=== PATIENT | female | born 1970 | race Caucasian/White ===

== ENCOUNTER 2020-11-03 17:17 | Outpatient (CLI) | payer MEDICARE, SELFPAY ==
--- NOTE | ~2020-11-03 | XR_ITS ---
XR foot LT min 3V DATE: 11/03/2020 18:02 INDICATION: Lateral pain and swelling; injury 6 months ago TECHNIQUE: 4 views COMPARISON: None FINDINGS: Plantar calcaneal enthesopathy. No fracture or dislocation, periosteal reaction or bone destruction. IMPRESSION: Plantar calcaneal enthesopathy Reviewed, dictated and finalized at location A. ARCHITECT
--- NOTE | ~2020-11-03 | XR_ITS ---
XR ankle LT min 3V DATE: 11/03/2020 18:01 INDICATION: Lateral ankle pain and swelling following injury 6 month TECHNIQUE: 4 views COMPARISON: None FINDINGS: Moderate plantar and mild posterior calcaneal enthesopathy. No fracture or dislocation of the ankle or disruption of the ankle mortise. IMPRESSION: No fracture or dislocation Calcaneal enthesopathy Reviewed, dictated and finalized at location A. RMATORY ATTENDANT
--- NOTE | ~2020-11-03 | XR_ITS ---
XR lumbar spine 2-3V DATE: 11/03/2020 18:00 INDICATION: Low back pain, shooting pain to left leg for 4 weeks there is no acute injury. TECHNIQUE: AP, lateral, coned lateral lumbosacral views COMPARISON: 07/26/2018 lumbar spine FINDINGS: Normal alignment of the lumbar spine. Minimal lumbar scoliosis. No fracture or bone destruction or spondylolisthesis. The included lower thoracic and lumbar pedicles are intact. There is minimal degenerative spurring of the lumbar spine. Lumbar and lumbosacral inter spaces are relatively preserved. The sacroiliac joints are intact. Compression screw of a proximal right femur. Status post cholecystectomy IMPRESSION: Minimal degenerative spurring of the lumbar spine Reviewed, dictated and finalized at location A. E CLEANER
== END 2020-11-03 17:18 | disposition home or self-care (01) ==
PROVIDERS: Family Provider Family Medicine; PCP Family Medicine; Visit Provider Nurse Practitioner Family
DX: M25.572 Pain in left ankle and joints of left foot (principal); M79.672 Pain in left foot; M54.5 Low back pain; M77.32 Calcaneal spur, left foot
CPT/HCPCS: 72100; 73610; 73630

== ENCOUNTER 2021-08-15 09:33 | Outpatient (CLI) | payer MEDICARE, SELFPAY ==
--- NOTE | ~2021-08-15 | XR_ITS ---
EXAMINATION: XR elbow LT min 3V DATE: 08/15/2021 10:16 INDICATION: Left elbow pain TECHNIQUE: Anteroposterior, two oblique and lateral views of the left elbow were obtained. COMPARISON: 09/26/2018 FINDINGS: Alignment is normal. No fracture or joint effusion. Joint spaces are normal. Soft tissues a re unremarkable. IMPRESSION: 1. No acute osseous abnormality. Reviewed, dictated and finalized at location B. ING TRUCK DRIVER
--- NOTE | ~2021-08-15 | XR_ITS ---
EXAMINATION:XR_CERV2-3V_CR DATE: 08/15/2021 10:16 INDICATION: Neck pain TECHNIQUE: AP, lateral, and odontoid views of the cervical spine are provided. COMPARISON: None FINDINGS: There is a 1.5 mm of retrolisthesis of C3 on C4. And 1 mm retrolisthesis of C4 on C5. The v ertebral body heights are maintained. There is moderate loss of intervertebral disc space height from C3-4 through C5-6. Small degenerative osteophytes project from the anterior endplates of multiple ve rtebral bodies. The odontoid is intact. No fracture is identified. There is severe multilevel facet a nd uncovertebral joint osteoarthritis. Prevertebral soft tissues are normal. IMPRESSION: 1. Moderate cervical spondylosis without acute findings. Reviewed, dictated and finalized at location B. UCTION SUPERVISOR TRAINEE
== END 2021-08-15 09:34 | disposition home or self-care (01) ==
LOC: ANHIMG 09:38
PROVIDERS: PCP Family Medicine; Visit Provider Nurse Practitioner Family
DX: M25.522 Pain in left elbow (principal); M47.892 Other spondylosis, cervical region
CPT/HCPCS: 72040; 73080

== ENCOUNTER → 2021-09-19 01:03 | Outpatient (CLI) | payer MEDICARE, SELFPAY ==
[2021-09-20 02:02] LABS: SARS-CoV-2 RNA PCR Negative
== END ==
PROVIDERS: PCP Family Medicine; Visit Provider Physician Assistant Medical
DX: R68.89 Other general symptoms and signs (principal); Z20.822 Contact with and (suspected) exposure to COVID-19
CPT/HCPCS: C9803; U0003; U0005

== ENCOUNTER 2021-09-28 16:36 | Outpatient (CLI) | payer MEDICARE, SELFPAY ==
[2021-09-28 18:22] LABS: Rubella IgG Antibody 11.3 IU/ML
[2021-09-28 18:39] LABS: Hepatitis B Surface Anti Res Positive
== END 2021-09-28 16:37 | disposition home or self-care (01) ==
LOC: ANHLAB 16:46
PROVIDERS: PCP Family Medicine; Visit Provider Nurse Practitioner Family
DX: Z02.1 Encounter for pre-employment examination (principal)
CPT/HCPCS: 36415; 86706; 86735; 86765; 86787

== ENCOUNTER → 2021-12-06 12:50 | Outpatient (CLI) | payer MEDICARE, SELFPAY ==
--- NOTE | ~2021-12-06 | US_ITS ---
US soft tissue UE LT 12/06/2021 13:06 Indication: Left elbow pain. Palpable soft tissue nodule. Procedure: High-resolution ultrasound of the left elbow Comparison: No prior studies for comparison. Findings: There is normal heterogeneous soft tissue of the left elbow without discrete fluid collecti on or mass. Impression: 1: Normal soft tissue ultrasound of the left elbow. Reviewed, dictated and finalized at location A. TAL MARKETS SPECIALIST Impression: 1: Normal soft tissue ultrasound of the left elbow.
== END ==
PROVIDERS: Visit Provider Nurse Practitioner Family
DX: M25.522 Pain in left elbow (principal)
CPT/HCPCS: 76882

== ENCOUNTER 2021-12-07 08:41 | Outpatient (CLI) | payer MEDICARE, SELFPAY ==
--- NOTE | 2021-12-07 11:00 | NEURO_ITS ---
Impression: # Complains of left upper extremity pain and discomfort. # Normal nerve conduction study. # No Carpal Tunnel Syndrome or ulnar neuropathy. # Normal needle/EMG exam. # Clinical correlation recommended. Nerve Conduction Studies Anti Sensory Summary Table Stim Site NR Peak (ms) P-T Amp (?V) Site1 Site2 Delta-P (ms) Dist (cm) Zach (m/s) Left Median Anti Sensory (2-3nd Digit) Wrist 2.7 91.8 Wrist 2-3nd Digit 2.7 14.0 52 Wrist 2.7 71.3 Wrist 2-3nd Digit 2.7 14.0 52 Right Median Anti Sensory (2-3nd Digit) Wrist 2.6 83.4 Wrist 2-3nd Digit 2.6 14.0 54 Wrist 2.4 84.1 Wrist 2-3nd Digit 2.6 14.0 54 Left Radial Anti Sensory (Base 1st Digit) Wrist 1.9 29.7 Wrist Base 1st Digit 1.9 0.0 Right Radial Anti Sensory (Base 1st Digit) Wrist 2.1 25.6 Wrist Base 1st Digit 2.1 0.0 Left Ulnar Anti Sensory (5th Digit) Wrist 2.4 71.3 Wrist 5th Digit 2.4 14.0 58 Right Ulnar Anti Sensory (5th Digit) Wrist 2.1 63.0 Wrist 5th Digit 2.1 14.0 67 Motor Summary Table Stim Site NR Onset (ms) O-P Amp (mV) Site1 Site2 Delta-0 (ms) Dist (cm) Zach (m/s) Left Median Motor (Abd Poll Brev) Wrist 3.1 4.5 Elbow Wrist 3.8 26.0 68 Elbow 6.9 4.4 Right Median Motor (Abd Poll Brev) Wrist 3.0 3.0 Elbow Wrist 4.6 25.0 54 Elbow 7.6 2.8 Left Ulnar Motor (Abd Dig Minimi) Wrist 2.6 6.7 A Elbow Wrist 4.2 26.0 62 A Elbow 6.8 5.6 Right Ulnar Motor (Abd Dig Minimi) Wrist 2.4 6.3 A Elbow Wrist 4.6 27.0 59 A Elbow 7.0 1.6 F Wave Studies NR F-Lat (ms) L-R F-Lat (ms) Left Median (Mrkrs) (Abd Poll Brev) 25.94 0.39 Right Median (Mrkrs) (Abd Poll Brev) 25.55 0.39 Left Ulnar (Mrkrs) (Abd Dig Min) 25.31 0.39 Right Ulnar (Mrkrs) (Abd Dig Min) 25.70 0.39 EMG Side Muscle Nerve Root Ins Act Fibs Amp Dur Recrt Comment Right 1stDorInt Ulnar C8-T1 Nml Nml Nml Nml Nml Right Ext Indicis Radial (Post Int) C7-8 Nml Nml Nml Nml Nml Right Ext Digitorum Radial (Post Int) C7-8 Nml Nml Nml Nml Nml Right BrachioRad Radial C5-6 Nml Nml Nml Nml Nml Right PronatorTeres Median C6-7 Nml Nml Nml Nml Nml Right Abd Poll Brev Median C8-T1 Nml Nml Nml Nml Nml Left 1stDorInt Ulnar C8-T1 Nml Nml Nml Nml Nml Left Ext Indicis Radial (Post Int) C7-8 Nml Nml Nml Nml Nml Left Ext Digitorum Radial (Post Int) C7-8 Nml Nml Nml Nml Nml Left BrachioRad Radial C5-6 Nml Nml Nml Nml Nml Left PronatorTeres Median C6-7 Nml Nml Nml Nml Nml Left Abd Poll Brev Median C8-T1 Nml Nml Nml Nml Nml MTDD
== END 2021-12-07 08:42 | disposition home or self-care (01) ==
LOC: ANHNEURO 08:42
PROVIDERS: PCP Family Medicine; Visit Provider Nurse Practitioner Family
DX: R53.1 Weakness (principal)
CPT/HCPCS: 95886; 95911

== ENCOUNTER 2022-01-03 09:54 | Outpatient (CLI) | payer MEDICARE, SELFPAY ==
[2022-01-03 10:27] LABS: Basophils Percent Auto 0.4 % (0.2-1.2); Eosinophils Absolute Auto 0.2 K/mm3 (0-0.3); Eosinophils Percent Auto 3.2 % (0-4.4); Hematocrit 39.1 % (37.0-47.0); Hemoglobin 12.5 g/dL (12.0-15.0); Immature Granulocyte Absolute 0.01 K/mm3 (0.00-0.031); Immature Granulocyte Percent A 0.2 % (0-0.5); Lymphocytes Absolute Auto 1.76 K/mm3 (0.9-3.2); Lymphocytes Percent Auto 34.7 % (18.3-44.2); Mean Corpuscular Hemoglobin 29.3 pg (26-34); Mean Corpuscular Volume 91.8 fl (80-100); Mean Platelet Volume 10.5 fl (7.4-10.4); Monocytes Absolute Auto 0.5 K/mm3 (0.1-0.6); Monocytes Percent Auto 9.3 % (2.6-8.5); Neutrophils Absolute Auto 2.7 K/mm3 (1.3-6.7); Neutrophils Percent Auto 52.2 % (45.5-73.1); Platelet Count Result 246 k/mm3 (150-375); Red Blood Count 4.26 M/mm3 (4.2-5.4); Red Cell Distribution Width 13.2 % (11.5-14.5); White Blood Count 5.1 K/mm3 (4.5-10.0)
[2022-01-03 10:43] LABS: Rheumatoid Factor < 8.6 IU/ML (<12)
[2022-01-03 10:44] LABS: CRP < 0.5 mg/dL (<1.0); Uric Acid 4.1 mg/dL (2.5-7.5)
[2022-01-03 10:54] LABS: Erythrocyte Sedimentation Rate 27 mm/hr (0-20)
== END 2022-01-03 09:55 | disposition home or self-care (01) ==
LOC: ANHLAB 09:57
PROVIDERS: PCP Family Medicine; Visit Provider Orthopaedic Surgery
DX: M25.522 Pain in left elbow (principal); M05.20 Rheumatoid vasculitis with rheumatoid arthritis of unspecified site
CPT/HCPCS: 36415; 84550; 85025; 85652; 86038; 86140; 86430

== ENCOUNTER 2022-01-16 10:15 | Outpatient (CLI) | payer MEDICARE, SELFPAY ==
--- NOTE | ~2022-01-16 | MR_ITS ---
EXAMINATION: MR forearm LT wo con DATE: 01/16/2022 11:21 INDICATION: Left elbow pain. TECHNIQUE: Magnetic resonance imaging (MRI) of the left forearm was performed without intravenous con trast. Sequences included axial, coronal, and sagittal T1-weighted FSE and STIR FSE. COMPARISON: Ultrasound 12/06/2021, left elbow radiographs 08/15/2021 FINDINGS: Bone alignment is normal. No fracture. There is mild biceps tendinopathy. There is moderate bicipitoradial bursitis. The muscle bellies are normal. Brachialis tendon is normal. There is mild o lecranon bursitis. IMPRESSION: 1. Mild biceps tendinopathy. No tear. 2. Moderate bicipitoradial bursitis. 3. Mild olecranon bursitis. Reviewed, dictated and finalized at location A.
== END 2022-01-16 10:16 ==
LOC: MICIMG 10:16
PROVIDERS: PCP Family Medicine; Visit Provider Orthopaedic Surgery
DX: M70.22 Olecranon bursitis, left elbow (principal); M70.32 Other bursitis of elbow, left elbow
CPT/HCPCS: 73218

== ENCOUNTER 2022-01-26 07:31 | Outpatient (CLI) | payer MEDICARE, SELFPAY ==
--- NOTE | 2022-02-08 14:52 | WPDSLEEPSTUD ---
Sleep Study Date of Study: 01/26/22 Ordering Provider: Last Yates MD Interpreting Physician: Carla Vail MD Sleep Study Type: Split Polysomnogram Height: 1.57 m Weight: 89.811 kg Body Mass Index: 36.2 Neck Circumference (inches): 15.5 [place]: 18 Reason for Sleep Study Hypersomnolence, gasping for breath at night Sleep History Faviola Coulter is a 51 year old female with fibromyalgia. She has loud constant snoring and reports that her pulse oximetry drops to 78% or below while sleeping. She has had episodes of waking during the night gasping for air. She has used 2 L/min oxygen with sleep. She has a difficult time falling asleep, staying asleep and has a difficult time waking in the morning. She occasionally awakens from sleep feeling short of breath. She occasionally awakens at night with heartburn, belching or coughing. She constantly has trouble sleeping with a cold. She occasionally wakes up gasping for breath at night. She occasionally has breathing problems at night observed by others. She frequently sweats excessively at night. She does not notice her heart pounding or beating irregularly at night. She constantly falls asleep during the day, constantly falls asleep involuntarily, occasionally falls asleep while driving. She does not have loss of muscle tone with strong emotion. She occasionally has daytime difficulties due to excessive sleepiness. 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 She does not feel paralyzed on waking or falling asleep nor does she have vivid dreamlike scenes upon awakening or falling asleep. She does not feel afraid to go to sleep. She frequently has nightmares. She occasionally remembers her dreams. She occasionally has racing thoughts. She occasionally feels sad, occasionally feels depressed. She frequently has anxiety. She occasionally has muscular tension. She occasionally notices parts of her body jerking. She rarely kicks at night. She occasionally has crawling and aching feelings in her legs. She occasionally has leg pain during the night. She rarely has morning jaw pain. She does not grind her teeth during sleep. She constantly is bothered by pain during the day and awakened by pain during the night. She frequently wakes up feeling stiff in the morning with sore achy muscles. She constantly wakes up with pain in the neck and spine. She has fatigue, memory problems, concentration difficulties, headaches and she takes antacids regularly. Her sleepiness has a negative impact on her sexual function. She reports gaining 50 lb in the last year. Normal bedtime is 8:00 p.m. falling asleep within 2 hours, sometimes longer. She typically wakes once at night for an hour or longer. While awake, she will watch television. Her work time is 3:00 a.m. 5 days a week. On her days off, her bedtime is also 8:00 p.m., and she sleeps longer, till 11:00 a.m. or 12 noon. Her work schedule is 3:00 a.m. 5 days out of the week. She estimates getting 6 hours of sleep at night. She takes naps in the afternoon or evening. A short nap is not refreshing. She is usually drowsy for 2 hours after waking. She feels better in the afternoon compared to other times of day. Habits: She never smoked tobacco. Caffeine 1 serving a day. Alcohol 1 serving per week. No recreational drugs. [facility] Past Medical History Medical History Abnormal heart rhythm Apnea Asthma Bipolar 2 disorder BMI 34.0-34.9,adult BMI 34.0-34.9,adult BMI 35.0-35.9,adult Chronic kidney disease (CKD), stage II (mild) Depression Diabetes type 2, controlled Dyslipidemia Edema Essential (primary) hypertension Fibromyalgia Headache, migraine High cholesterol History of femur fracture Hypertension Hypothyroidism Kidney disease Left anterior shoulder pain Left arm pain Left elbow tendinitis left biceps tendon Mixed hyperlipidemia Respiratory illness Se
[2022-02-08 15:37] VITALS: BMI 36.2
== END 2022-01-27 05:37 | disposition home or self-care (01) ==
LOC: ANHCSM 07:32
PROVIDERS: PCP Family Medicine; Visit Provider Family Medicine
DX: G47.33 Obstructive sleep apnea (adult) (pediatric) (principal)
CPT/HCPCS: 95811

== ENCOUNTER 2022-03-19 08:46 | Outpatient (CLI) | payer OTHER, MEDICARE, SELFPAY ==
--- NOTE | ~2022-03-19 | XR_ITS ---
XR foot RT 2V DATE: 03/19/2022 09:03 INDICATION: Right foot pain, especially heel area TECHNIQUE: AP and lateral views COMPARISON: 05/12/2013 right ankle FINDINGS: Mild plantar calcaneal enthesopathy without associated erosive change or periostitis. No fracture, dislocation, periosteal reaction or bone destruction is detected. IMPRESSION: Mild plantar calcaneal enthesopathy Reviewed, dictated and finalized at location A.
== END 2022-03-19 08:47 | disposition home or self-care (01) ==
LOC: ANHIMG 08:49
PROVIDERS: PCP Family Medicine; Visit Provider Physician Assistant Medical
DX: M79.671 Pain in right foot (principal); G89.29 Other chronic pain; M77.31 Calcaneal spur, right foot
CPT/HCPCS: 73620

== ENCOUNTER 2022-08-29 10:25 | Outpatient (CLI) | payer MEDICARE, SELFPAY ==
[2022-08-29 11:26] LABS: Anion Gap 10 mmol/L (8-16); Blood Urea Nitrogen 19 mg/dL (7-17); Calcium 9.2 mg/dL (8.4-10.2); Carbon Dioxide 26 mmol/L (22-30); Chloride 103 mmol/L (98-107); Estimated Glomerular Filt Rate 58; Glucose 121 mg/dL (65-110); Potassium 4.3 mmol/L (3.4-5.0); Sodium 139 mmol/L (137-145)
[2022-08-29 11:43] LABS: Free T4 Free Thyroxine 0.69 ng/mL (0.78-2.19); Vitamin D 25 Hydroxy 52.1 ng/mL
[2022-08-29 12:17] LABS: Vitamin B12 > 1000.0 pg/mL (239-931)
== END 2022-08-29 10:26 | disposition home or self-care (01) ==
LOC: ANHLAB 10:27
PROVIDERS: PCP Family Medicine; Visit Provider Nurse Practitioner Family
DX: R53.1 Weakness (principal); R25.9 Unspecified abnormal involuntary movements; E03.9 Hypothyroidism, unspecified; R25.8 Other abnormal involuntary movements; E53.8 Deficiency of other specified B group vitamins; E55.9 Vitamin D deficiency, unspecified
CPT/HCPCS: 36415; 80048; 82306; 82607; 84439; 84443

== ENCOUNTER 2022-09-10 18:41 | Emergency (ER) | payer MEDICARE, SELFPAY ==
[2022-09-10 19:18] VITALS: BP 116/97; PULSE 62; RESP 16; TEMP 36.6; O2SAT 100
--- NOTE | 2022-09-10 20:03 | ED.URI ---
HPI - URI/Sore Throat General Chief Complaint: Upper Respiratory Infection Stated Complaint: Sore Throat, Cough Time Seen by Provider: 09/10/22 20:03 Source: patient, RN notes reviewed and old records reviewed Mode of arrival: ambulatory Limitations: no limitations History of Present Illness HPI Narrative: 52-year-old female presents to the [facility] with complaints of a sore throat and cough As well as laryngitis for Three days. Patient has very vague symptoms. Declining strep testing. Wants flu testing. patient reports that she did have a fever of 98.8. No treatment prior to arrival Related Data Home Medications Medication Instructions Recorded Confirmed aripiprazole 400 mg intramuscular 400 mg IM MONTHLY 11/03/20 09/10/22 suspension,extended release (Abilify Maintena) Allergies Allergy/AdvReac Type Severity Reaction Status Date / Time amoxicillin Allergy Severe RASH Verified 08/17/22 11:01 morphine Allergy Severe ARRYTHMIA/LOW Verified 08/17/22 11:01 B/P Penicillins Allergy Severe SEVERE Verified 08/17/22 11:01 RASH, HIVES Sulfa (Sulfonamide Allergy Unknown Verified 08/17/22 11:01 Antibiotics) Review of Systems Review of Systems: All systems reviewed & are unremarkable except as noted in HPI and below Constitutional: Constitutional: Reports no additional constitutional complaints Eyes: Eyes: Reports no additional eye complaints ENT: Reports as per HPI Cardiovascular: Cardiovascular: Reports no additional cardiovascular complaints, Denies chest pain and Denies dyspnea Respiratory: Respiratory: Reports no additional respiratory complaints, Denies chest congestion, Denies cough and Denies dyspnea Gastrointestinal: Gastrointestinal: Reports no additional gastrointestinal complaints, Denies abdominal pain, Denies nausea and Denies vomiting Musculoskeletal: Musculoskeletal: Reports no additional musculoskeletal complaints Integumentary/Breasts: Skin/Breast: Reports system reviewed and no additional complaints, except as docu Neurologic: Reports system reviewed and no additional complaints, except as documented Psychiatric: Psychiatric: Reports no additional psychiatric complaints Allergic/Immunologic: Allergic/Immunologic: Reports no additional allergic/immunologic complaints PMFSH Past Medical History Medical History Abnormal heart rhythm Apnea Asthma Bipolar 2 disorder BMI 34.0-34.9,adult BMI 34.0-34.9,adult BMI 35.0-35.9,adult BMI greater than 30 Chronic kidney disease (CKD), stage II (mild) Depression Diabetes type 2, controlled Dyslipidemia Edema Essential (primary) hypertension Fibromyalgia Headache, migraine High cholesterol History of femur fracture Hypertension Hypothyroidism Kidney disease Left anterior shoulder pain Left arm pain Left elbow tendinitis left biceps tendon Mixed hyperlipidemia Respiratory illness Seasonal allergies Suicide attempt 2016 Thyroid disease Vitamin D deficiency Surgical History Surgical History H/O: hysterectomy History of appendectomy History of delivery History of cholecystectomy History of esophageal surgery History of sinus surgery History of surgery on right wrist Family History Family History Father Hypertension Cerebrovascular accident Sibling Hypertension Family history of diabetes mellitus in first degree relative Asthma Mother Family history of heart disease in male family member before age 55 Depression Grandparent Diabetes mellitus Hypertension Other Family history of arthritis Family history of bipolar disorder Family history of malignant neoplasm Social History Social History Smoking status: Never smoker Second hand tobacco smoke exposure: Y
== END 2022-09-10 20:30 | disposition home or self-care (01) ==
PROVIDERS: Emergency Provider Nurse Practitioner; PCP Family Medicine
DX: J06.9 Acute upper respiratory infection, unspecified (principal); J45.909 Unspecified asthma, uncomplicated; I12.9 Hypertensive chronic kidney disease with stage 1 through stage 4 chronic kidney disease, or unspecified chronic kidney disease; E11.22 Type 2 diabetes mellitus with diabetic chronic kidney disease; N18.2 Chronic kidney disease, stage 2 (mild); M79.7 Fibromyalgia; E78.00 Pure hypercholesterolemia, unspecified; E78.2 Mixed hyperlipidemia
CPT/HCPCS: 87804; 99213; G0463

== ENCOUNTER 2022-09-13 11:19 | Outpatient (CLI) | payer MEDICARE, SELFPAY ==
--- NOTE | ~2022-09-13 | XR_ITS ---
XR sacroiliac joints min 3V DATE: 09/13/2022 12:11 INDICATION: Pain TECHNIQUE: AP and bilateral oblique views COMPARISON: None FINDINGS: Compression screw device of proximal right femur. Normal alignment at the pubic symphysis and sacroiliac joints. No fracture or dislocation, erosive ch benny or ankylosis at the sacroiliac joints. IMPRESSION: No significant abnormality of the sacroiliac joints Reviewed, dictated and finalized at Location A. Reviewed, dictated and finalized at location B. ENT ACCOUNT LIAISON
[2022-09-13 12:21] LABS: Uric Acid 4.3 mg/dL (2.5-7.5)
[2022-09-13 13:02] LABS: Rheumatoid Factor < 8.6 IU/ML (<12)
[2022-09-19 09:03] LABS: Anti Cyclic Citrullinated Pept <16 Units (<20)
== END 2022-09-13 11:20 | disposition home or self-care (01) ==
LOC: ANHLAB 11:21
PROVIDERS: PCP Family Medicine; Visit Provider Internal Medicine
DX: M19.90 Unspecified osteoarthritis, unspecified site (principal); M79.7 Fibromyalgia; Z71.89 Other specified counseling; Z79.899 Other long term (current) drug therapy
CPT/HCPCS: 36415; 72202; 84550; 86038; 86200; 86430

== ENCOUNTER 2022-09-24 17:11 | Observation (INO) | payer MEDICARE, SELFPAY ==
--- NOTE | ~2022-09-24 | XR_ITS ---
XR chest 1V portable DATE: 09/24/2022 18:35 INDICATION: Weakness TECHNIQUE: Portable upright AP chest on 09/24/2022 at 1828 hours COMPARISON: 09/26/2018 AP and lateral chest FINDINGS: There is mild infiltrate and/or atelectasis at the lung bases. The lungs otherwise appear c lear. Heart size appears within normal range. No pleural effusion or pulmonary vascular congestion or pneum othorax is noted. Surgical clips overlie the left and right upper quadrants the abdomen. IMPRESSION: Mild infiltrate and/atelectasis at both lung bases Reviewed, dictated and finalized at location A. MAINFRAME SYSTEMS PROGRAMMER
--- NOTE | ~2022-09-24 | CT_ITS ---
EXAMINATION: CTA brain carotid DATE: 09/24/2022 19:51 INDICATION: Dizziness. Weakness. TECHNIQUE: Computed tomographic angiography (CTA) of the head was performed without and with 100 mL O mnipaque-350 intravenous contrast. CTA of the neck was performed with intravenous contrast. Automated exposure control and iterative reconstruction technique were employed. The dose-length product was 1 592.04 mGy-cm. Maximum intensity projection and volume rendered 3D-reconstructions were created by ed woo technologist on a separate workstation. COMPARISON: Head CT 09/26/2018 FINDINGS: HEAD CTA: There is no intracranial hemorrhage, acute infarction, or abnormal intracranial mass lesion . The ventricles are normal in size. The paranasal sinuses are clear. The mastoid air cells are no l. The orbits are normal. Right vertebral artery is dominant. There is no significant stenosis of bas ilar artery or the posterior cerebral arteries. The posterior communicating arteries are normal. Ther e is no significant stenosis of the intracranial internal carotid arteries or anterior or middle cere bral arteries. Anterior communicating artery is normal. There is no aneurysm. NECK CTA: There are no pathologically enlarged lymph nodes. There is no significant stenosis of the v ertebral arteries. There is mild plaque in the proximal internal carotid arteries. There is 0% stenos is of the proximal right internal carotid artery relative to normal distal artery lumen diameter (GILL CET criteria). There is 0% stenosis of the proximal left internal carotid artery relative to normal d istal artery lumen diameter. There is severe cervical and thoracic spondylosis. IMPRESSION: 1. Normal brain. No aneurysm or significant intracranial arterial stenosis. 2. 0% stenosis of the proximal internal carotid arteries relative to normal distal artery lumen diame ters (NASCET criteria). Reviewed, dictated and finalized at location A. NG CUTTING MACHINE OPERATOR IMPRESSION: 1. Normal brain. No aneurysm or significant intracranial arterial stenosis. 2. 0% stenosis of the proximal internal carotid arteries relative to normal dis yakov artery lumen diameters (NASCET criteria).
[2022-09-24 17:33] VITALS: BP 126/72; PULSE 36; RESP 20; TEMP 36.7; O2SAT 100
--- NOTE | 2022-09-24 17:36 | ECG_ITS ---
Measurements Intervals [place] Rate: 69 P: 51 NE: 131 QRS: 12 QRSD: 86 T: 17 QT: 360 QTc: 386 Interpretive Statements SINUS RHYTHM WITH FREQUENT VENTRICULAR PREMATURE COMPLEXES IN A BIGEMINAL PATTERN ABNORMAL RHYTHM ECG NO PREVIOUS ECG AVAILABLE FOR COMPARISON Electronically Signed On 09-25-2022 15:29:47 MARKET BASKET MAKER by Michelle Rogers M.D.
[2022-09-24] MEDS: LACTATED RINGERS 1,000 ML 999 ML IV CONT (18:32)
[2022-09-24 18:53] LABS: Basophils Percent Auto 0.2 % (0.2-1.2); Eosinophils Percent Auto 0.1 % (0-4.4); Hematocrit 41.3 % (37.0-47.0); Hemoglobin 13.4 g/dL (12.0-15.0); Immature Granulocyte Absolute 0.04 K/mm3 (0.00-0.031); Immature Granulocyte Percent A 0.4 % (0-0.5); Lymphocytes Absolute Auto 1.31 K/mm3 (0.9-3.2); Lymphocytes Percent Auto 13.3 % (18.3-44.2); Mean Corpuscular HGB Conc 32.4 g/dl (32-36); Mean Corpuscular Hemoglobin 29.3 pg (26-34); Mean Corpuscular Volume 90.4 fl (80-100); Mean Platelet Volume 10.3 fl (7.4-10.4); Monocytes Absolute Auto 0.4 K/mm3 (0.1-0.6); Monocytes Percent Auto 4.1 % (2.6-8.5); Neutrophils Absolute Auto 8.1 K/mm3 (1.3-6.7); Neutrophils Percent Auto 81.9 % (45.5-73.1); Platelet Count Result 325 k/mm3 (150-375); Red Blood Count 4.57 M/mm3 (4.2-5.4); Red Cell Distribution Width 13.7 % (11.5-14.5); White Blood Count 9.9 K/mm3 (4.5-10.0)
[2022-09-24 18:55] LABS: Add Urine Microscopic? NO; Appearance Urine Clear (Clear); Bilirubin Urine Negative (Negative); Blood Urine Negative (Negative); Color Urine Light Yellow (Yellow); Glucose Urine UA Negative (Negative); Ketones Urine Negative (Negative); Leukocyte Esterase Ur Negative LEU/UL (Negative); Nitrate Urine Negative (Negative); Protein Urine Negative (Negative); Specific Grav Ur <= 1.005 (1.001-1.035); Urobilinogen Urine 0.2 mg/dL (<2.0)
[2022-09-24 19:09] LABS: INR 1.1
[2022-09-24 19:10] LABS: Partial Thromboplastin Time 26.3 SECONDS (22.3-36.8)
[2022-09-24 19:13] LABS: Alanine Aminotransferase 182 U/L (6-35); Albumin Level 4.4 g/dL (3.5-5.1); Alkaline Phosphatase 94 U/L (38-126); Anion Gap 6 mmol/L (8-16); Aspartate Amino Transferase 106 U/L (14-36); Bilirubin,Total 0.3 mg/dL (0.2-1.3); Blood Urea Nitrogen 14 mg/dL (7-17); Calcium 8.9 mg/dL (8.4-10.2); Carbon Dioxide 30 mmol/L (22-30); Chloride 101 mmol/L (98-107); Estimated CRCL calculation 66 ml/min; Estimated Glomerular Filt Rate > 60; Glucose 130 mg/dL (65-110); Potassium 4.1 mmol/L (3.4-5.0); Sodium 137 mmol/L (137-145)
[2022-09-24 19:15] LABS: Lactic Acid Reflex 1.4 mmol/L (0.7-2.0)
[2022-09-24 19:16] LABS: Lipase 68 U/L (23-300); Magnesium 2.2 mg/dL (1.6-2.3)
[2022-09-24 19:28] LABS: Influenza A QL RT-PCR Negative (Negative); Influenza B QL RT-PCR Negative (Negative); SARS-CoV-2 RNA PCR Negative
[2022-09-24 19:29] LABS: Troponin I < 0.012 ng/mL (0.000-0.034)
--- NOTE | 2022-09-24 19:37 | ED.DIZZY ---
HPI - Dizziness General Chief Complaint: Dizziness Stated Complaint: feels like she might faint Time Seen by Provider: 09/24/22 17:58 Source: patient and RN notes reviewed Mode of arrival: ambulatory Limitations: no limitations History of Present Illness HPI Narrative: This is a 52 year old female who presents for evaluation dizziness and low heart rate. Patient reports dizziness for 2 weeks . She reports feeling faint and she also reports spinning sensation. She reports her dizziness is constant. She thought her dizziness was due to clogged right ear so she was evaluated at Urgent care initially. She was diagnosed with covid at that time. She states her right ear does not feel clogged any more but she is still dizzy. She reports her monitor records that her heart rate is in the 30s. She also noticed midsternal nonradiating chest heaviness that has been present all day. She denies any exacerbating factors. She denies sob or cough. SHe reports nausea but denies vomiting. She also has been having body shaking all over for past 4 days. On reviewed of medical record, patient was seen by PCP recently for abnormal arm movements for several weeks. Related Data Home Medications Medication Instructions Recorded Confirmed aripiprazole 400 mg intramuscular 400 mg IM MONTHLY 11/03/20 09/10/22 suspension,extended release (Abilify Maintena) Allergies Allergy/AdvReac Type Severity Reaction Status Date / Time amoxicillin Allergy Severe RASH Verified 09/13/22 10:05 morphine Allergy Severe ARRYTHMIA/LOW Verified 09/13/22 10:05 B/P Penicillins Allergy Severe SEVERE Verified 09/13/22 10:05 RASH, HIVES Sulfa (Sulfonamide Allergy Unknown Verified 09/13/22 10:05 Antibiotics) Review of Systems Review of Systems: All systems reviewed & are unremarkable except as noted in HPI and below Constitutional: Constitutional: Denies chills and Denies fatigue ENT: Denies dysphagia, Denies nasal congestion and Denies sore throat Cardiovascular: Cardiovascular: Reports chest pain, Denies radiating jaw, neck or arm pain and Reports slow heart rate Respiratory: Respiratory: Denies chest congestion, Denies cough and Denies dyspnea Genitourinary: Genitourinary: Denies dysuria Neurologic: Reports vertigo, Reports dizziness, Denies focal weakness and Denies numbness PMFSH Past Medical History Medical History Abnormal heart rhythm Apnea Asthma Bipolar 2 disorder BMI 34.0-34.9,adult BMI 34.0-34.9,adult BMI 35.0-35.9,adult BMI greater than 30 Chronic kidney disease (CKD), stage II (mild) Depression Diabetes type 2, controlled Dyslipidemia Edema Essential (primary) hypertension Fibromyalgia Headache, migraine High cholesterol History of femur fracture Hypertension Hypothyroidism Inflammatory arthritis Kidney disease Left anterior shoulder pain Left arm pain Left elbow tendinitis left biceps tendon Mixed hyperlipidemia Respiratory illness Seasonal allergies Suicide attempt 2016 Thyroid disease Vitamin D deficiency Surgical History Surgical History H/O: hysterectomy History of appendectomy History of delivery History of cholecystectomy History of esophageal surgery History of sinus surgery History of surgery on right wrist Family History Family History Father Hypertension Cerebrovascular accident Sibling Hypertension Family history of diabetes mellitus in first degree relative Asthma Mother Family history of heart disease in male family member before age 55 Depression Grandparent Diabetes mellitus Hypertension Other Family history of arthritis Family history of bipolar disorder Family history of malignant neoplasm Social History Social History Smo
[2022-09-24] MEDS: ONDANSETRON INJ 4 MG/2 ML VIAL IV PUSH ×2 (21:34→23:25)
[2022-09-24] MEDS: MECLIZINE HCL 25 MG TABLET PO (21:34)
[2022-09-24 21:50] VITALS: BP 124/92; BP 133/91; PULSE 40; PULSE 58
[2022-09-24 21:51] VITALS: BP 137/81; PULSE 56
--- NOTE | 2022-09-24 22:49 | PM.IMHP ---
H&P: HPI History of Present Illness Date/Time: 09/24/22 22:49 Chief Complaint: vertigo Narrative: this is a 52-year-old female with past medical history significant for chronic kidney disease, type diabetes mellitus, hypertension, migraine headache, Tanvi fundoplication. Patient presents to the emergency room after she tested positive for COVID few days ago to has not been feeling well body aches and pains, loss of 6 sense of taste and smell, poor appetite, fevers, rigors, chills today she presented to the emergency room with complaints of vertigo sensation of room spinning around her. denies any focal sensorimotor deficit. preliminary workup was significant for patient tested negative for influenza A, influenza B and COVID-19 a chest x-ray was reported as: IMPRESSION: Mild infiltrate and/atelectasis at both lung bases? Review of Systems Review of Systems: VERTIGO, BODY ACHES AND PAINS, FEVERS, CHILLS, TESTED POSITIVE FOR COVID AT HOME, POOR APPETITE. Constitutional: Constitutional: Reports body ache(s), Reports chills, Reports fatigue, Reports fever(s), Reports lethargy, Reports malaise, Reports poor appetite and Reports weakness Eyes: Eyes: Denies change in vision ENT: Denies dysphagia, Reports vertigo and Denies odynophagia Cardiovascular: Cardiovascular: Denies chest pain and Denies palpitations Respiratory: Respiratory: Denies cough, Denies excessive phlegm production and Denies dyspnea Gastrointestinal: Gastrointestinal: Denies abdominal pain, Denies dyspepsia, Denies heartburn, Denies diarrhea, Denies nausea and Denies vomiting Genitourinary: Genitourinary: Denies dysuria Musculoskeletal: Musculoskeletal: Reports myalgias Integumentary/Breasts: Skin/Breast: Denies rash Neurologic: Denies vertigo, Denies dizziness, Denies focal weakness and Denies Sensory deficit (Neuro) Psychiatric: Psychiatric: Reports no additional psychiatric complaints and Reports as per HPI Endocrine: Endocrine: Denies cold intolerance, Denies flushing, Denies heat intolerance, Denies polyphagia, Denies polydipsia and Denies palpitations Hematologic/Lymphatic: Hematologic/Lymphatic: Reports no additional hematologic/lymphatic complaints and Reports as per HPI Allergic/Immunologic: Allergic/Immunologic: Reports no additional allergic/immunologic complaints and Reports as per HPI [facility] Past Medical History Medical History Abnormal heart rhythm Apnea Asthma Bipolar 2 disorder BMI 34.0-34.9,adult BMI 34.0-34.9,adult BMI 35.0-35.9,adult BMI greater than 30 Chronic kidney disease (CKD), stage II (mild) Depression Diabetes type 2, controlled Dyslipidemia Edema Essential (primary) hypertension Fibromyalgia Headache, migraine High cholesterol History of femur fracture Hypertension Hypothyroidism Inflammatory arthritis Kidney disease Left anterior shoulder pain Left arm pain Left elbow tendinitis left biceps tendon Mixed hyperlipidemia Respiratory illness Seasonal allergies Suicide attempt 2016 Thyroid disease Vitamin D deficiency Surgical History Surgical History H/O: hysterectomy History of appendectomy History of delivery History of cholecystectomy History of esophageal surgery History of sinus surgery History of surgery on right wrist Family History Family History Father Hypertension Cerebrovascular accident Sibling Hypertension Family history of diabetes mellitus in first degree relative Asthma Mother Family history of heart disease in male family member before age 55 Depression Grandparent Diabetes mellitus Hypertension Other Family history of arthritis Family history of bipolar disorder Family history of malignant neoplasm Social History Social History S
[2022-09-24] MEDS: diazePAM (*CRX) 5 MG TABLET 2.5 MG PO (23:24)
[2022-09-25] MEDS: cefTRIAXone 2 GM in SODIUM CHLORIDE 0.9% IV 100 ML 200 ML IVPB (04:14)
[2022-09-25 07:18] LABS: Basophils Percent Auto 0.3 % (0.2-1.2); Eosinophils Absolute Auto 0.1 K/mm3 (0-0.3); Eosinophils Percent Auto 0.9 % (0-4.4); Hematocrit 39.1 % (37.0-47.0); Hemoglobin 12.6 g/dL (12.0-15.0); Immature Granulocyte Absolute 0.02 K/mm3 (0.00-0.031); Immature Granulocyte Percent A 0.3 % (0-0.5); Lymphocytes Absolute Auto 2.54 K/mm3 (0.9-3.2); Lymphocytes Percent Auto 36.5 % (18.3-44.2); Mean Corpuscular HGB Conc 32.2 g/dl (32-36); Mean Corpuscular Volume 89.9 fl (80-100); Mean Platelet Volume 10.2 fl (7.4-10.4); Monocytes Absolute Auto 0.5 K/mm3 (0.1-0.6); Monocytes Percent Auto 7.2 % (2.6-8.5); Neutrophils Absolute Auto 3.8 K/mm3 (1.3-6.7); Neutrophils Percent Auto 54.8 % (45.5-73.1); Platelet Count Result 260 k/mm3 (150-375); Red Blood Count 4.35 M/mm3 (4.2-5.4); Red Cell Distribution Width 13.5 % (11.5-14.5)
[2022-09-25 07:33] LABS: Alanine Aminotransferase 182 U/L (6-35); Albumin Level 3.7 g/dL (3.5-5.1); Alkaline Phosphatase 74 U/L (38-126); Anion Gap 6 mmol/L (8-16); Aspartate Amino Transferase 98 U/L (14-36); Bilirubin,Total 0.3 mg/dL (0.2-1.3); Blood Urea Nitrogen 14 mg/dL (7-17); Calcium 8.2 mg/dL (8.4-10.2); Carbon Dioxide 31 mmol/L (22-30); Chloride 103 mmol/L (98-107); Estimated CRCL calculation 66 ml/min; Estimated Glomerular Filt Rate > 60; Glucose 125 mg/dL (65-110); Potassium 3.5 mmol/L (3.4-5.0); Sodium 140 mmol/L (137-145)
--- NOTE | 2022-09-25 10:35 | PM.IMPN ---
Progress Note: A&P Assessment and Plan (1) Dizziness: Code(s): R42 - Dizziness and giddiness Status: Acute Assessment and Plan: Onset 1.5 weeks ago following viral illness. head/neck CTA revealed normal brain without evidence of aneurysm or intracranial stenosis and 0% stenosis of the proximal internal carotid arteries. Trial of meclizine. Monitor orthostatics. May benefit from outpatient referral to vestibular rehab. (2) Infiltrate of lung present on chest x-ray: Code(s): R91.8 - Other nonspecific abnormal finding of lung field Status: Acute Assessment and Plan: Suspect post COVID bacterial pneumonia. CXR revealed mild infiltrate of the bilateral lung bases. Continue ceftriaxone and azithromycin. Will attempt sputum for culture. Check urinary Legionella and pneumococcal antigens. Supportive care to include bronchodilators, expectorants, incentive spirometry, Corn[place] (3) COVID-19: Code(s): U07.1 - COVID-19 Status: Acute Assessment and Plan: Recent COVID-19 illness 1.5 weeks ago, did not have any antiviral or steroid treatment. COVID PCR negative on 09/24. Supportive care. (4) Diabetes type 2, controlled: Qualifiers: Diabetes mellitus mcfp insulin use: without professor of engineering use Diabetes mellitus complication status: without complication Qualified Code(s): E11.9 - Type 2 diabetes mellitus without complications Code(s): E11.9 - Type 2 diabetes mellitus without complications Status: Acute Assessment and Plan: patient reports diet-controlled. not on any hypoglycemic agents. Will initiate Accu-Cheks, sliding scale insulin, and hypoglycemic protocol. (5) Hypertension: Code(s): I10 - Essential (primary) hypertension Status: Acute Assessment and Plan: Blood pressures have been well controlled. Home antihypertensives will be resumed following medication reconciliation (6) Hypothyroid: Qualifiers: Hypothyroidism type: unspecified Qualified Code(s): E03.9 - Hypothyroidism, unspecified Code(s): E03.9 - Hypothyroidism, unspecified Status: Acute Assessment and Plan: last TSH 1 month ago was within normal limits. Resume home levothyroxine following reconciliation. (7) Bipolar 2 disorder: Code(s): F31.81 - Bipolar II disorder Status: Acute Assessment and Plan: Stable, no acute issues. Receives Abilify injections monthly. Resume home antidepressants Subjective Date/time seen: 09/25/22 10:35 Interval history: Date of service: 09/25/2022 Faviola Coulter is a 52-year-old female with a history of CKD, type 2 diabetes mellitus, hypertension, hyperlipidemia, hypothyroidism, bipolar disorder, vitamin-D deficiency who is seen in follow-up for dizziness. Patient states dizziness has been ongoing for 1.5 weeks, no change control analyst the course of the weeks. No recent worsening. She notices the symptoms more prominently when she turns her head, especially if turning her head to the right. Also notices symptoms when she is lying down. No change in symptoms with standing up, although she does endorse lightheadedness with standing. She denies shortness of breath or chest pain. Denies any recent cough. Did have an episode of nausea this morning that improved antiemetics. No vomiting and she has been able to tolerate her diet. Denies abdominal pain. No dysphagia. She endorses mild right ear fullness which seems to have improved over the past several days. She has a mild headache. Denies visual changes. No urinary symptoms. Review of Systems Review of Systems: All systems reviewed & are unremarkable except as noted in HPI and below Exam Narrative: General: well-nourished, well-appearing 52-year-old female, sitting up in bed, comfortable, NARD Neuro: awake, alert and oriented x4, speech clear, no focal neuro deficits noted HEENMT: normoce
[2022-09-25 11:17] VITALS: BP 110/61; PULSE 75
[2022-09-25 11:22] VITALS: BP 106/63; PULSE 72
[2022-09-25 11:24] VITALS: BP 117/68; PULSE 90
[2022-09-25 13:12] VITALS: BMI 33.3
== END 2022-09-25 14:35 | disposition left against medical advice (07) ==
LOC: ANHED 23:18 → ANH3MEDSUR 23:48
PROVIDERS: Emergency Medicine; Admitting Provider Internal Medicine; Emergency Provider General Practice; PCP Family Medicine; Visit Provider Physician Assistant
DX: R42 Dizziness and giddiness (principal); R91.8 Other nonspecific abnormal finding of lung field; R07.9 Chest pain, unspecified; R53.1 Weakness; J45.909 Unspecified asthma, uncomplicated; F31.81 Bipolar II disorder; I12.9 Hypertensive chronic kidney disease with stage 1 through stage 4 chronic kidney disease, or unspecified chronic kidney disease; E11.22 Type 2 diabetes mellitus with diabetic chronic kidney disease; N18.2 Chronic kidney disease, stage 2 (mild); E78.2 Mixed hyperlipidemia; M79.7 Fibromyalgia; Z20.822 Contact with and (suspected) exposure to COVID-19; Z86.16 Personal history of COVID-19; G43.909 Migraine, unspecified, not intractable, without status migrainosus; E03.9 Hypothyroidism, unspecified; M19.90 Unspecified osteoarthritis, unspecified site; R94.31 Abnormal electrocardiogram [ECG] [EKG]; F10.90 Alcohol use, unspecified, uncomplicated; Z79.1 Long term (current) use of non-steroidal anti-inflammatories (NSAID); Z79.891 Long term (current) use of opiate analgesic; Z79.899 Other long term (current) drug therapy; Z82.49 Family history of ischemic heart disease and other diseases of the circulatory system; Z83.3 Family history of diabetes mellitus; Z82.61 Family history of arthritis
CPT/HCPCS: 36415; 70496; 70498; 71045; 80053; 81003; 81025; 83605; 83690; 83735; 84484; 85025; 85610; 85730; 87636; 93005; 96361; 96365; 96366; 96375; 96376; 99285; A9270; G0378; J0456; J0696; J2405; J7120; Q9967

== ENCOUNTER 2022-10-29 08:26 | Outpatient (CLI) | payer MEDICARE, BC, SELFPAY ==
--- NOTE | 2022-10-29 08:46 | ECHO_ITS ---
Patient Info Name: Faviola Coulter Age: 52 years : 1970 Gender: Female Ht: 62 in Wt: 180 lbs BSA: 1.92 m2 HR: 72 bpm BP: 128 / 88 mmHg Technical Quality: Good Exam Date: 10/29/2022 8:59 AM Exam Location: [facility] Patient Status: Outpatient Admit Date: 10/29/2022 Staff Ordering Physician: Steven Kahn DO [place] Fireman: Bernadine Quiles RDCS Attending Provider: Steven Kahn DO Referring Physician: Femi REYNA; Exam Type: CA echo doppler color flow Study Info Indications - COVID INFECTION I49.3 - Ventricular premature depolarization Complete two-dimensional, color flow and Doppler transthoracic echocardiogram is performed. Summary 1. Complete two-dimensional, color flow and Doppler transthoracic echocardiogram is performed. 2. Left ventricular chamber dimension is normal. 3. Left ventricular systolic function is normal, estimated at 55-60%. 4. There is mildly increased left ventricular wall thickness. 5. The left ventricular diastolic function is abnormal. 6. E/e' 12 is mildly elevated. 7. Global longitudinal strain is normal at -18.6%. 8. Left atrial chamber dimension is moderately enlarged. 9. Right atrial chamber dimension is mildly enlarged. 10. There is trace mitral valve regurgitation. 11. There is mild tricuspid valve regurgitation. 12. No pulmonary hypertension, estimated pulmonary arterial systolic pressure is 37 mmHg. 13. There is trace pulmonic regurgitation. 14. There is trivial pericardial effusion. Left Ventricle E/e' 12 is mildly elevated. Global longitudinal strain is normal at -18.6%. Left ventricular chamber dimension is normal. Left ventricular systolic function is normal, estimated at 55-60%. There is mildly increased left ventricular wall thickness. The left ventricular diastolic function is abnormal. Right Ventricle Right ventricular systolic function is normal and with normal TAPSE 2.3 cm. Right ventricular chamber dimension is normal. Left Atria Left atrial chamber dimension is moderately enlarged. Right Atria Right atrial chamber dimension is mildly enlarged. Aortic Valve The aortic valve is trileaflet. There is no aortic valve stenosis. There is no aortic valve regurgitation. Pulmonic Valve There is trace pulmonic regurgitation. Mitral Valve There is no mitral valve stenosis. There is trace mitral valve regurgitation. Tricuspid Valve There is mild tricuspid valve regurgitation. No pulmonary hypertension, estimated pulmonary arterial systolic pressure is 37 mmHg. Pericardium/Pleural There is trivial pericardial effusion. Inferior Vena Cava Normal inferior vena cava with >50% collapse upon inspiration consistent with normal right atrial pressure, 5 mmHg. Aorta The aortic root size at the sinus of Valsalva is normal. Left Ventricular Outflow Tract Name Value Normal LVOT 2D LVOT Diameter 1.9 cm LVOT Doppler LVOT Peak Gradient 4 mmHg LVOT Mean Gradient 2 mmHg LVOT VTI 22 cm LVOT VTI/AV VTI Ratio 0.9
[2022-10-29 09:08] LABS: Alanine Aminotransferase 64 U/L (6-35); Albumin Level 4.3 g/dL (3.5-5.1); Alkaline Phosphatase 95 U/L (38-126); Anion Gap 4 mmol/L (8-16); Aspartate Amino Transferase 45 U/L (14-36); Bilirubin,Total 0.5 mg/dL (0.2-1.3); Blood Urea Nitrogen 20 mg/dL (7-17); Calcium 9.8 mg/dL (8.4-10.2); Carbon Dioxide 34 mmol/L (22-30); Chloride 100 mmol/L (98-107); Cholesterol 230 mg/dL (0-200); Estimated Glomerular Filt Rate 52; Glucose 110 mg/dL (65-110); HDL Direct 53 mg/dL; Sodium 138 mmol/L (137-145); Triglycerides 216 mg/dL (<150)
[2022-10-29 09:19] LABS: LDL Cholesterol Direct 107 mg/dL
== END 2022-10-29 08:27 | disposition home or self-care (01) ==
PROVIDERS: PCP Family Medicine; Visit Provider Internal Medicine Cardiovascular Disease
DX: I49.3 Ventricular premature depolarization (principal); E78.5 Hyperlipidemia, unspecified; I36.1 Nonrheumatic tricuspid (valve) insufficiency
CPT/HCPCS: 36415; 80053; 80061; 93306

== ENCOUNTER 2023-01-15 10:44 | Outpatient (CLI) | payer BC, MEDICARE, SELFPAY ==
[2023-01-15 11:43] LABS: Alanine Aminotransferase 35 U/L (6-35); Albumin Level 4.3 g/dL (3.5-5.1); Alkaline Phosphatase 79 U/L (38-126); Anion Gap 4 mmol/L (8-16); Aspartate Amino Transferase 29 U/L (14-36); Bilirubin,Total 0.6 mg/dL (0.2-1.3); Blood Urea Nitrogen 22 mg/dL (7-17); Calcium 9.1 mg/dL (8.4-10.2); Carbon Dioxide 30 mmol/L (22-30); Chloride 104 mmol/L (98-107); Cholesterol 157 mg/dL (0-200); Estimated Glomerular Filt Rate 58; Glucose 120 mg/dL (65-110); HDL Direct 67 mg/dL; Potassium 4.6 mmol/L (3.4-5.0); Sodium 138 mmol/L (137-145); Triglycerides 73 mg/dL (<150)
[2023-01-15 11:54] LABS: LDL Cholesterol Direct 66 mg/dL
[2023-01-15 12:01] LABS: T4 Thyroxine 6.62 ug/dL (5.53-11.0)
[2023-01-15 12:12] LABS: Hemoglobin A1C 5.6 % (<5.7)
[2023-01-15 12:34] LABS: Vitamin D 25 Hydroxy 56.3 ng/mL
== END 2023-01-15 10:45 | disposition home or self-care (01) ==
PROVIDERS: Nurse Practitioner Family; PCP Family Medicine; Referring Provider Internal Medicine Cardiovascular Disease; Visit Provider Nurse Practitioner Family
DX: E53.8 Deficiency of other specified B group vitamins (principal); E78.5 Hyperlipidemia, unspecified; E03.9 Hypothyroidism, unspecified; E11.9 Type 2 diabetes mellitus without complications; E55.9 Vitamin D deficiency, unspecified
CPT/HCPCS: 36415; 80053; 80061; 82306; 82607; 83036; 84436; 84443